=== PATIENT | male | born 1995 | race Caucasian/White ===

== ENCOUNTER 2016-10-23 18:18 | Emergency (ER) | payer OTHER ==
[2016-10-23] MEDS ORDERED: Ibuprofen TAB* 600 MG PO ONE (18:54)
--- NOTE | 2016-10-23 18:57 | UC ---
Lower Extremity/Ankle HPI - HPI Summary HPI Summary: 21 yo male arrived here soon after left ankle inversion injury unable to bear wt - History of Current Complaint Chief Complaint: UCLowerExtremity Stated Complaint: FOOT INJURY Time Seen by Provider: 10/23/16 18:50 Hx Obtained From: Patient Onset/Duration: Sudden Onset Severity Initially: Moderate Severity Currently: Moderate Pain Intensity: 6 Pain Scale Used: 0-10 Numeric Aggravating Factor(s): Standing, Ambulation Alleviating Factor(s): Rest, Elevation Able to Bear Weight: No - Allergies/Home Medications Allergies/Adverse Reactions: Allergies Allergy/AdvReac Type Severity Reaction Status Date / Time No Known Allergies Allergy Verified 10/23/16 18:34 Home Medications: Home Medications OLANzapine TAB* [ZyPREXA TAB*] 10 mg PO DAILY 10/23/16 [History Confirmed ] PMH/Surg Hx/FS Hx/Imm Hx Previously Healthy: Yes - Surgical History Surgical History: None - Family History Known Family History: Positive: Hypertension - Social History Alcohol Use: Occasionally Substance Use Type: None Smoking Status (MU): Never Smoked Tobacco Review of Systems Constitutional: Negative Skin: Negative Eyes: Negative ENT: Negative Respiratory: Negative Cardiovascular: Negative Gastrointestinal: Negative Genitourinary: Negative Motor: Negative Neurovascular: Negative Musculoskeletal: Arthralgia Neurological: Negative Psychological: Negative All Other Systems Reviewed And Are Negative: Yes Physical Exam Triage Information Reviewed: Yes Appearance: Well-Appearing, No Pain Distress, Well-Nourished Vital Signs: Initial Vital Signs Temp 99 F 10/23/16 18:31 Pulse 116 10/23/16 18:31 Resp 20 10/23/16 18:31 BP 122/70 10/23/16 18:31 Vital Signs Reviewed: Yes Eyes: Positive: Conjunctiva Clear ENT: Positive: Hearing grossly normal. Negative: Nasal drainage, Trismus, Muffled/hoarse voice Neck: Positive: Supple Respiratory: Positive: Lungs clear, Normal breath sounds, No respiratory distress Cardiovascular: Positive: RRR, No Murmur Musculoskeletal: Positive: Edema @ - LM and MM Psychological: Positive: Normal Response To Family, Age Appropriate Behavior Skin Exam: Normal Lower Extremity Course/Dx - Differential Dx/Diagnosis Provider Diagnoses: left ankle sprain Discharge - Discharge Plan Condition: Stable Disposition: HOME Prescriptions: Ibuprofen TAB* [Motrin TAB*] 600 mg PO QID PRN #40 tab PRN Reason: Pain Patient Education Materials: Ankle Sprain (ED) Referrals: Hernan Arthur [Medical Doctor] - If Needed (call Tuesday and make an appt) Additional Instructions: rest elevate ice kenneth wrap- remove at bedtime CAM boot crutches you can wt bear as tolerated you will probably have some significant bruising of the foot
--- NOTE | 2016-10-23 19:18 | RAD ---
Indication: Lateral pain following injury playing basketball. Comparison: None. Technique: AP, mortise, and lateral views LEFT ankle. Report: Significant lateral soft tissue swelling and evidence for a talocrural joint effusion with distention of the posterior joint recess. No fracture, osteochondral lesion, or malalignment evident. Small os trigonum noted. IMPRESSION: Consider lateral supporting ligament injury.
[2016-10-23 19:22] VITALS: BP 96/49
== END 2016-10-23 19:43 | disposition home or self-care (01) ==
LOC: UCEAST 18:18
DX: S93.402A Sprain of unspecified ligament of left ankle, initial encounter (principal); X50.1XXA Overexertion from prolonged static or awkward postures, initial encounter; Y93.9 Activity, unspecified; Y92.9 Unspecified place or not applicable
CPT/HCPCS: 99203; A9270-GY; G0463

== ENCOUNTER 2017-05-25 23:19 | Inpatient (IN) | payer OTHER ==
[2017-05-26 00:09] LABS: Hematocrit 45 % (42-52); Hemoglobin 15.2 g/dl (14.0-18.0); Mean Corpuscular HGB Conc 34 g/dl (31-36); Mean Corpuscular Hemoglobin 30 pg (27-31); Mean Corpuscular Volume 88 fL (80-94); Mean Platelet Volume 8 um3 (7.4-10.4); Red Blood Count 5.06 10^6/ul (4.0-5.4); Red Cell Distribution Width 14 % (10.5-15); White Blood Count 8.8 10^3/ul (3.5-10.8)
[2017-05-26 00:24] LABS: Acetaminophen < 15 mcg/mL; Alcohol < 10 mg/dL (<10); Salicylate < 2.50 mg/dL (<30)
[2017-05-26 00:25] LABS: ALT 111 U/L (7-52); AST 67 U/L (13-39); Albumin 4.4 g/dL (3.2-5.2); Alkaline Phosphatase 94 U/L (34-104); Anion Gap 8 mmol/L (2-11); BUN/Creatinine Ratio 12.5 (8-20); Blood Urea Nitrogen 12 mg/dL (6-24); CO2 Carbon Dioxide 23 mmol/L (22-32); Calcium 9.1 mg/dL (8.6-10.3); Chloride 105 mmol/L (101-111); EGFR African American 127.2 (>60); EGFR Non-African American 98.9 (>60); Globulin 3.1 g/dL (2-4); Glucose 97 mg/dL (70-100); Potassium 3.5 mmol/L (3.5-5.0); Sodium 136 mmol/L (133-145); Total Protein 7.5 g/dL (6.4-8.9)
[2017-05-26 00:34] LABS: TSH (Thyroid Stimulating Horm) 1.62 mcIU/mL (0.34-5.60)
--- NOTE | 2017-05-26 04:20 | ED ---
Micaela Boothe Rebecca, scribed for Juan Lemus on 05/26/17 at 0040 . Psychiatric Complaint - HPI Summary HPI Summary: Pt is a 22 y/o M who presents to ED c/o fatigue s/p Zyprexa OD. Tuesday night at midnight (2 days) the pt took 15 Zyprexa. Pt reports he only remembers potrions of the night, but when asked if he was experiencing SIs at the time, he states "I guess." Pt did not wake up until today when he now c/o fatigue. Denies currently experiencing SIs. PMHx Bipolar disorder for hwich he had the Zyprexa as an emergency medication after a change in medication. - History Of Current Complaint Chief Complaint: EDMentalHealth Time Seen by Provider: 05/26/17 00:14 Hx Obtained From: Patient Onset/Duration: Resolved Aggravating Factor(s): Nothing Alleviating Factor(s): Nothing Related History: Positive For: Prior Psychiatric Issues - Bipolar Disorder Has Suicidal: Denies: Thoughts - Negative currently, believes he had them the other night Ingestion History: Type/Name Of Drug - Zyprexa, Amount Ingested - 15 tabs, Approximate Time Of Ingestion - 2 days ago - Allergies/Home Medications Allergies/Adverse Reactions: Allergies Allergy/AdvReac Type Severity Reaction Status Date / Time No Known Allergies Allergy Verified 10/23/16 18:34 PMH/Surg Hx/FS Hx/Imm Hx Cardiovascular History: Denies: Hx Coronary Artery Disease Psychiatric History: Reports: Hx Bipolar Disorder Infectious Disease History: No Infectious Disease History: Denies: Traveled Outside the [place] in Last 30 Days - Family History Known Family History: Positive: Hypertension - Social History Alcohol Use: Occasionally Substance Use Type: Reports: None Smoking Status (MU): Never Smoked Tobacco Review of Systems Positive: Fatigue Positive: Other - Denies SIs now - believes he had them the other night All Other Systems Reviewed And Are Negative: Yes Physical Exam - Summary Physical Exam Summary: Appearance: Well appearing, no pain distress Skin: warm, dry, reflects adequate perfusion Head/face: normal Eyes: EOMI, [place] ENT: normal Neck: supple, nontender Respiratory: CTA, breath sounds present Cardiovascular: RRR, pulses symmetrical Abdomen: nontender, soft Bowel: present Musculoskeletal: normal, strength/ROM intact Neuro: normal, sensory motor intact, A&Ox3 Psychiatric: Depressed affect Triage Information Reviewed: Yes Vital Signs On Initial Exam: Initial Vitals Temp Pulse Resp BP Pulse Ox 98.6 F 109 18 159/96 97 05/25/17 23:23 05/25/17 23:23 05/25/17 23:23 05/25/17 23:23 05/25/17 23:23 Vital Signs Reviewed: Yes Diagnostics - Vital Signs Vital Signs Temp Pulse Resp BP Pulse Ox 05/25/17 23:23 98.6 F 109 18 159/96 97 - Laboratory Lab Results: Lab Results 05/26/17 Range/Units 00:00 WBC 8.8 (3.5-10.8) 10^3/ul RBC 5.06 (4.0-5.4) 10^6/ul Hgb 15.2 (14.0-18.0) g/dl Hct 45 (42-52) % MCV 88 (80-94) fL MCH 30 (27-31) pg MCHC 34 (31-36) g/dl RDW 14 (10.5-15) % Plt Count 225 (150-450) 10^3/ul MPV 8 (7.4-10.4) um3 Neut % (Auto) 67.8 (38-83) % Lymph % (Auto) 22.7 L (25-47) % Coffey % (Auto) 7.4 (1-9) % Eos % (Auto) 1.4 (0-6) % Baso % (Auto) 0.7 (0-2) % Absolute Neuts (auto) 6.0 (1.5-7.7) 10^3/ul Absolute Lymphs (auto) 2.0 (1.0-4.8) 10^3/ul Absolute Monos (auto) 0.7 (0-0.8) 10^3/ul Absolute Eos (auto) 0.1 (0-0.6) 10^3/ul Absolute Basos (auto) 0.1 (0-0.2) 10^3/ul Absolute Nucleated RBC 0 10^3/ul Nucleated RBC % 0 Result Diagrams: 05/26/17 00:00 05/26/17 00:00 Lab Statement: Any lab studies that have been ordered have been reviewed, and results considered in the medical decision making process. - EKG 2357 Cardiac Rate: NL - 97 bpm EKG Rhythm: Sinus Rhythm EKG Interpretation: No acute changes Course/Dx - Course Assessment/Plan: Pt is a 22 y/o M who presents to ED c/o fatigue s/p Zyprexa OD. Tuesday night at midnight (2 days) the pt took 15 Zyprexa. Pt reports he only remembers potrions of the night, but when asked if he was experiencing SIs at the time, he states "I guess." Pt did not wake up until today when he now c/ o fatigue. Denies currently experiencing SIs. PMHx Bipolar disorder for hwich he had the Zyprexa as an emergency medication after a change in medication. Blood work was done. EKGis sinus rhtyhm with no acute changes. Medically clear for MHE at 0110. Upon MHE, it has been determined that the pt will be admitted with Dx of depression, SIs and bipolar. He understands and agrees. Elevated BP noted. - Differential Dx/Clinical Impression Provider Diagnosis: Depression, Suicidal ideations, Bipolar disorder Discharge - Discharge Plan Condition: Stable Disposition: ADMITTED TO [facility] The documentation as recorded by the Micaela goodwin Rebecca accurately reflects the service I personally performed and the decisions made by , Juan Lemus.
[2017-05-26 04:47] LABS: Albumin 4.6 g/dL (3.2-5.2); Direct Bilirubin 0.2 mg/dL (0.03-0.18); Globulin 3.2 g/dL (2-4); Indirect Bilirubin 0.6 mg/dL (0.3-1.0); Total Bilirubin 0.8 mg/dL (0.2-1.0); Total Protein 7.8 g/dL (6.4-8.9)
[2017-05-26] MEDS ORDERED: Acetaminophen TAB* 325 MG PO PRN (05:59)
[2017-05-26] MEDS ORDERED: Al Hydrox/Mg Hydrox/Simet LIQ* 30 ML UDC PO PRN (05:59)
[2017-05-26] MEDS: Vitamin THERAPEUTIC TAB PO SCH (10:29)
[2017-05-26 11:35] LABS: Urine Bilirubin Negative (Negative); Urine Glucose Negative (Negative); Urine Nitrite Negative (Negative)
[2017-05-26 11:49] LABS: Benzodiazepine Urine Screen None Detected (None Detect)
[2017-05-26] MEDS: Lithium Carbonate TAB* 300 MG PO SCH ×2 (14:35→21:06)
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
[2017-05-26] MEDS ORDERED: CMC:Lurasidone (NF) 40 MG TAB PO SCH (17:00)
[2017-05-27] MEDS: Vitamin THERAPEUTIC TAB PO SCH (08:43)
[2017-05-27] MEDS: Lithium Carbonate TAB* 300 MG PO SCH ×2 (08:43→20:18)
[2017-05-27] MEDS: BuPROPion XL* 150 MG TAB.XL PO SCH (14:11)
--- NOTE | 2017-05-27 15:18 | PN ---
Subjective - Subjective Service Type: 85666 Hosp care 25 min moderate complexity Subjective: Patient is dysphoric, pleasant upon approach. He reports feeling "tired." Patient reports history of medication non-compliance and that he typically misses doses approx a few times per week. He denies barriers other than forgetfulness. He denies side effects from medications. He is receptive to suggestions for improved adherence, including daily dosing of medications and monthly injectable. Patient reports his current psychiatrist is out of network for insurance and therefore tries to prescribe medications that are inexpensive or available via samples. Collaboration with patient's psychiatrist denotes agreement with pursuing injectable medication. Social work contacted insurance company to clarify benefits. Objective - Appearance Appearance: Well Developed/Nourished Dysmorphic Features: Yes Hygiene: Normal Grooming: Fairly Well Kept - Behavior Psychomotor Activities: Normal Exhibits Abnormal Movement: No - Attitude and Relatedness Attitude and Relatedness: Cooperative Eye Contact: Fair - Speech Quality: Unpressured Latencies: Normal Quantity: Appropriate - Mood Patient's Decription of Mood: "tired" - Affect Observed Affect: Depressed Affect Consistent with: Dysphoria - Thought Process Patient's Thought Process: Coherent, Goal Directed Thought Content: No Passive Wish, No Suicidal Planning, No Homicidal Ideation, No Paranoid Ideation - Sensorium Experiencing Hallucinations: No, Sensorium is Clear Type of Hallucinations: Visual: No, Auditory: No, Command: No - Level of Consciousness Level of Consciousness: Alert Orientation: Yes Intact, Yes Orientated to Time, Yes Orientated to Place, Yes Orientated to Person - Impulse Control Impulse Control: Tenuous - Insight and Judgement Insight and Judgement: Fair - Group Participation Particating in Group Activities: Yes Group Participation Comments: partially - Medication Management Medication Management Adherence: Yes Assessment - Assessment Merits Inpatient Hospitalization: For Immediate Safety, For Stabilization, To Initiate Treatment, For Discharge Planning Inpatient DSM-IV Dx: I: bipolar I d/o, most recent episode depressed; alcohol use d/o, cannabis use d/o. II: deferred. III: increased liver enzymes, obesity. IV: stressors r/t social isolation, academic pressures. V: 50 Clinical Impression: Jony is a 22yo student with a history of bipolar d/o. He attempted overdose via a previous prescription of zyprexa. He merits hospitalization for immediate safety and stabilization. He is agreeable to consideration of injectable medication due to medication non-compliance. Plan - Plan Treatment Plan: Name: JONY PANCHAL Birthdate: 1995 [id number] Add wellbutrin XL 150mg daily, DC Latuda and add and aripiprazole 20mg daily. Will consider abilify maintenna injection if patient tolerates oral trial. Obtain lithium level, CMP, hbga1c and lipid panel in am. Decrease observation to q30min and allow for staff pass. Patient may use computer for academic needs. Continued Medication Management: Different Medication Medications: Current Medications Acetaminophen (Tylenol Tab*) 650 mg PO Q4H PRN PRN Reason: PAIN or TEMP > 101 F Al Hydrox/Mg Hydrox/Simethicone (Maalox Plus*) 30 ml PO Q4H PRN PRN Reason: INDIGESTION Aripiprazole (Abilify Tab*) 20 mg PO DAILY REED Bupropion HCl (Wellbutrin Xl *) 150 mg PO DAILY REED PRN Reason: Protocol Last Admin: 05/27/17 14:11 Dose: 150 mg [place] Carbonate ([place] Carbonate Tab*) 300 mg PO BID REED Last Admin: 05/27/17 08:43 Dose: 300 mg Multivitamins (Theragran Tab*) 1 tab PO DAILY REED Last Admin: 05/27/17 08:43 Dose: 1 tab - Discharge Plan Discharge Plan: Outpatient Follow Up Outpatient Program: Private Clinician(s) - Michelle Colindres
[2017-05-27] MEDS: ARIPiprazole TAB* 20 MG PO SCH (15:45)
[2017-05-28 08:31] LABS: Albumin 4.9 g/dL (3.2-5.2); BUN/Creatinine Ratio 10.7 (8-20); Calcium 9.7 mg/dL (8.6-10.3); EGFR African American 106.4 (>60); EGFR Non-African American 82.8 (>60); HDL Cholesterol 33.7 mg/dL; Total Bilirubin 0.8 mg/dL (0.2-1.0); Total Protein 7.9 g/dL (6.4-8.9)
[2017-05-28] MEDS: Vitamin THERAPEUTIC TAB PO SCH (08:36)
[2017-05-28] MEDS: ARIPiprazole TAB* 20 MG PO SCH (08:36)
[2017-05-28] MEDS: BuPROPion XL* 150 MG TAB.XL PO SCH (08:36)
[2017-05-28] MEDS: Lithium Carbonate TAB* 300 MG PO SCH ×2 (08:36→20:23)
[2017-05-28 08:58] LABS: Lithium 0.2 mmol/L (0.6-1.2)
[2017-05-29] MEDS: ARIPiprazole TAB* 20 MG PO SCH (08:33)
[2017-05-29] MEDS: Vitamin THERAPEUTIC TAB PO SCH (08:33)
[2017-05-29] MEDS: BuPROPion XL* 150 MG TAB.XL PO SCH (08:33)
[2017-05-29] MEDS: Lithium Carbonate TAB* 300 MG PO SCH ×2 (08:33→20:11)
--- NOTE | 2017-05-29 18:21 | PN ---
Subjective - Subjective Service Type: 99861 Hosp care 15 min low complexity Subjective: Jony appeared to be in good mood and reports that his current meds are working the best without any side effects. Denies hallucinations, paranoia or mood problems. Wants to know his discharge date and I defered that to his development planner. Objective - Appearance Appearance: Obese Dysmorphic Features: No Hygiene: Normal Grooming: Well Kept - Behavior Psychomotor Activities: Normal Exhibits Abnormal Movement: No - Attitude and Relatedness Attitude and Relatedness: Cooperative Eye Contact: Good - Speech Quality: Unpressured Latencies: Normal Quantity: Appropriate - Mood Patient's Decription of Mood: "Fine" - Affect Observed Affect: Non-labile Affect Consistent with: Euthymia - Thought Process Patient's Thought Process: Coherent, Goal Directed Thought Content: No Passive Wish, No Suicidal Planning, No Homicidal Ideation, No Paranoid Ideation - Sensorium Experiencing Hallucinations: No, Sensorium is Clear Type of Hallucinations: Visual: No, Auditory: No, Command: No - Level of Consciousness Level of Consciousness: Alert Orientation: Yes Intact, Yes Orientated to Time, Yes Orientated to Place, Yes Orientated to Person - Impulse Control Impulse Control: Intact - Insight and Judgement Insight and Judgement: Good - Group Participation Particating in Group Activities: Yes - Medication Management Medication Management Adherence: Yes Assessment - Assessment Merits Inpatient Hospitalization: Consolidate Improvements, For Discharge Planning Inpatient DSM-IV Dx: I: bipolar I d/o, most recent episode depressed; alcohol use d/o, cannabis use d/o. II: deferred. III: increased liver enzymes, obesity. IV: stressors r/t social isolation, academic pressures. V: 50 Clinical Impression: Appears to be doing well on current meds. Plan - Plan Treatment Plan: Name: JONY PANCHAL Birthdate: 1995 [id number] Continued Medication Management: Continue Outpt Medication Medications: Current Medications Acetaminophen (Tylenol Tab*) 650 mg PO Q4H PRN PRN Reason: PAIN or TEMP > 101 F Al Hydrox/Mg Hydrox/Simethicone (Maalox Plus*) 30 ml PO Q4H PRN PRN Reason: INDIGESTION Aripiprazole (Abilify Tab*) 20 mg PO DAILY REED Last Admin: 05/29/17 08:33 Dose: 20 mg Bupropion HCl (Wellbutrin Xl *) 150 mg PO DAILY [facility] PRN Reason: Protocol Last Admin: 05/29/17 08:33 Dose: 150 mg [place] Carbonate ([place] Carbonate Tab*) 300 mg PO BID REED Last Admin: 05/29/17 08:33 Dose: 300 mg Multivitamins (Theragran Tab*) 1 tab PO DAILY [facility] Last Admin: 05/29/17 08:33 Dose: 1 tab - Discharge Plan Discharge Plan: Outpatient Follow Up Outpatient Program: JUAN CARLOS
[2017-05-30] MEDS: BuPROPion XL* 150 MG TAB.XL PO SCH (08:11)
[2017-05-30] MEDS: ARIPiprazole TAB* 20 MG PO SCH (08:11)
[2017-05-30] MEDS: Vitamin THERAPEUTIC TAB PO SCH (08:11)
[2017-05-30] MEDS: Lithium Carbonate TAB* 300 MG PO SCH (08:11)
[2017-05-30 08:20] VITALS: BP 131/63
[2017-05-30] MEDS ORDERED: Aripiprazole Maintena (NF) 300 MG SYRINGE IM SCH (11:00)
--- NOTE | 2017-05-30 15:50 | DS ---
CC: KELLY Chung; Dr. Suresh; Bharati Rashid, JODIE, [facility]* DATE OF ADMISSION: 05/26/2017. DATE OF DISCHARGE: 05/30/2017. SUPERVISING PSYCHIATRIST: Dr. Jim Zaragoza* (dictated by KENAN Rodriguez) . DISCHARGE DIAGNOSES: Bipolar disorder, most recent episode depressed; alcohol use disorder; cannabis use disorder. CONDITION AT THE TIME OF DISCHARGE: Improved. Max reports readiness for discharge. He states that his mood is "good." He denies suicidal ideation. He denies passive wish. He reports that last week he was overwhelmed with school, work and life decisions in regards to education and career. He is receptive to suggestions from staff in regards to medication compliance and decrease in alcohol use. He states that he "wants to quit" and asks about resources on campus and elsewhere for counseling and substance use treatment. He is agreeable to first injection of Abilify Maintena today in order to improve medication adherence and stability. He reports agreement to follow-up with outpatient providers this week as well. The patient reports receiving benefit of admission, attending groups, and meeting with other patients who are the same age and also college students. He reports not feeling as alone in regards to being hospitalized and having bipolar disorder. MENTAL STATUS EXAM: The patient is euthymic, brightens upon approach. He is well- groomed, dressed in his own clothing. He is a tall male with brown hair. He is pleasant and cooperative, and answers questions fully. His eye contact is good. His speech is soft and articulate. Thought process is logical and goal -directed. He is forward thinking. Thought content is negative for delusions, active suicidal ideations or obsessions. He denies A/V hallucinations. His insight is good. His judgment is good. Memory functions are intact in all spheres. Fund of knowledge is excellent. DISCHARGE INSTRUCTIONS GIVEN TO THE PATIENT: A. Medications: The following were electronically prescribed to [facility] in [place]: He will continue Aripiprazole 20 mg oral at bedtime daily for 14 days and then stop; he will continue Aripiprazole Maintena injection 400 mg q.28 days; Wellbutrin XL 300 mg p.o. q.a.m.; [place] ER 600 mg at bedtime. The above oral medications were electronically prescribed for a two week supply. B. Diet: Regular. C. Ambulance: As tolerated. Tobacco cessation not applicable. There are no pending labs or diagnostic studies at the time of discharge. The patient was given a copy of his chemistry data obtained in the hospital including liver enzymes which are improving. Hemoglobin A1c and lipid panel were drawn due to second generation antipsychotic therapy. D. Follow-up care: The patient will see Bharati Rashid, [facility] Security System Administrator tomorrow. He will see his psychiatrist, Dr. Suresh on Tuesday , the , at 11:00 a.m. He will need a [place] level drawn in one week from today. He has an appointment with his therapist, Michelle Rouse, appointment to be set by senior production planner. He is encouraged to follow-up with primary care through [facility] in regards to liver enzymes and other general medical complaints as needed. HOSPITAL COURSE: A. Reason for admission: The patient presented to the emergency department with his roommates after taking an overdose of Zyprexa two days ago. He fell asleep and woke up disoriented to time and day. He told his roommates that he had taken approximately 15 Zyprexa tabs from a previous prescription. He was agreeable to being evaluated in the emergency department. B. Psychiatric treatment rendered: The patient was admitted to the Adult Behavioral Services Unit on status. Code status was full. Safety checks every 15 minutes. The patient was encouraged to participate in supportive milieu and individual and group therapy. Initially re-instated T[place] and Latuda as those were his current outpatient prescriptions. The patient reported difficulty with remembering to take medications on an outpatient basis. He was agreeable to once daily dosing of medications and to consider a long-acting injectable. Discharge planners identified insurance benefits for him through [employer]. This included mail order prescriptions. [employer] collaborated with outpatient psychiatrist, Dr. Suresh, and he is agreeable with continuing long-acting injectable. The patient tolerated an oral trial of Aripiprazole and was given his first dose of Abilify Maintena 400 mg today. Other than tenderness at the site, no other adverse effects were noted. The patient was decreased to 30 minute checks for observation, allowed to go on staff pass. He was allowed the use of a computer for academic purposes. He was present in programming, euthymic, interactive with select peers and staff. He slept well. He denied depression or anxiety. Wellbutrin was reinstated at 150 mg. he denied hypomania or anxiety. He denied suicidal ideation, HI or , and continued to report readiness for discharge. The patient was safe on all checks. This parts data writer collaborated with his mother and notified her of improvement in patient's presentation and his insight in regards to alcohol use and medication noncompliance. She was notified of treatment planning and discharge planning. Discussed separately with both patient and mother safety planning to include disposing of previous and unused medications. The patient will also be coordinating with [facility] Crisis Management. The patient reports desire to take taxi back to his apartment. He will be given discharge instructions by nursing staff. Discharge instructions will also be emailed to his mother to assist in follow up. The patient is an intelligent and kind, respectful young man. We wish him well. He is encouraged to return to the ED should symptoms worsen or if he has any side effects from current medications. KENAN RODRIGUEZ [id number]/CPS #: [id number] LEONORA
== END 2017-05-30 16:00 | disposition home or self-care (01) | DRG 753 ==
LOC: ED 23:19 → BSU 05-26 02:52
PROVIDERS: ADMIT Psychiatry & Neurology Psychiatry; ATTEND Psychiatry & Neurology Psychiatry
DX: F31.30 Bipolar disorder, current episode depressed, mild or moderate severity, unspecified (principal); Z91.14 Patient's other noncompliance with medication regimen; E66.9 Obesity, unspecified; F12.90 Cannabis use, unspecified, uncomplicated; T43.592A Poisoning by other antipsychotics and neuroleptics, intentional self-harm, initial encounter; R79.89 Other specified abnormal findings of blood chemistry; F41.9 Anxiety disorder, unspecified; R53.83 Other fatigue; Z68.38 Body mass index [BMI] 38.0-38.9, adult; Z87.820 Personal history of traumatic brain injury; Z72.89 Other problems related to lifestyle; Z81.8 Family history of other mental and behavioral disorders; Z81.1 Family history of alcohol abuse and dependence; Z82.49 Family history of ischemic heart disease and other diseases of the circulatory system
CPT/HCPCS: 36415; 80053; 80061; 80076; 80178; 80307; 80320; 80329; 81003; 83036; 84443; 85025; 93005; A9270-GY; G0480

== ENCOUNTER 2018-02-14 10:30 | Emergency (ER) | payer OTHER ==
[2018-02-14 10:59] VITALS: BP 143/87
[2018-02-14] MEDS ORDERED: Ketorolac INJ* 30 MG/ML 1 ML VIAL IM ONE (11:18)
--- NOTE | 2018-02-14 11:25 | ED ---
Back Pain - HPI Summary HPI Summary: 22 presents with back pain for the past couple days. He states he does not have a history of back pain. He states that pain is in his lower back. Denies any loss of bladder or bowel or saddle anesthesia. Denies any fevers. Denies any history of IV drug use. No weakness. No pain into his legs. No numbness or tingling. is able to ambulate. States pain is greatest when trying to lay on his back. Has been taking Tylenol without relief. No injury. - History of Current Complaint Chief Complaint: UCBackPain Stated Complaint: BACK PAIN Time Seen by Provider: 02/14/18 11:12 Pain Intensity: 3 - Allergies/Home Medications Allergies/Adverse Reactions: Allergies Allergy/AdvReac Type Severity Reaction Status Date / Time No Known Allergies Allergy Verified 02/14/18 10:56 PMH/Surg Hx/FS Hx/Imm Hx Endocrine/Hematology History: Denies: Hx Anticoagulant Therapy Cardiovascular History: Denies: Hx Coronary Artery Disease Sensory History: Denies: Hx Contacts or Glasses, Hx Hearing Aid Opthamlomology History: Denies: Hx Contacts or Glasses Psychiatric History: Reports: Hx Inpatient Treatment, Hx Community Mental Health Tx, Hx Bipolar Disorder Denies: Hx Eating Disorder Infectious Disease History: No Infectious Disease History: Denies: Traveled Outside the [place] in Last 30 Days - Family History Known Family History: Positive: Hypertension - Social History Alcohol Use: None Substance Use Type: Reports: None Smoking Status (MU): Never Smoked Tobacco Have You Smoked in the Last Year: No Review of Systems Negative: Fever Negative: Chest Pain Negative: Shortness Of Breath Positive: Myalgia - back pain All Other Systems Reviewed And Are Negative: Yes Physical Exam Triage Information Reviewed: Yes Vital Signs On Initial Exam: Initial Vitals Temp Pulse Resp BP Pulse Ox 96.6 F 96 18 143/87 100 02/14/18 10:56 02/14/18 10:56 02/14/18 10:56 02/14/18 10:56 02/14/18 10:56 Vital Signs Reviewed: Yes Appearance: Positive: Well-Appearing Skin: Positive: Warm, Dry Head/Face: Positive: Normal Head/Face Inspection Eyes: Positive: Normal, Conjunctiva Clear ENT: Positive: Pharynx normal Respiratory/Lung Sounds: Positive: Clear to Auscultation, Breath Sounds Present Cardiovascular: Positive: Normal, RRR Musculoskeletal: Positive: Strength/ROM Intact - back, Other - tenderness lower back, neg SLR, good strength lower leg, good pulses, gait normal, sensation grossly intact Neurological: Positive: Normal, Reflexes Intact - patella Psychiatric: Positive: Normal Diagnostics - Vital Signs Vital Signs Temp Pulse Resp BP Pulse Ox 02/14/18 10:56 96.6 F 96 18 143/87 100 - Laboratory Lab Statement: Any lab studies that have been ordered have been reviewed, and results considered in the medical decision making process. Back Pain Course/Dx - Course Course Of Treatment: 22 presents with back pain for the past couple days. He states he does not have a history of back pain. He states that pain is in his lower back. Denies any loss of bladder or bowel or saddle anesthesia. Denies any fevers. Denies any history of IV drug use. No weakness. No pain into his legs. No numbness or tingling. is able to ambulate. States pain is greatest when trying to lay on his back. Has been taking Tylenol without relief. No injury. on exam tenderness lower back. good strenght lower extremities. neurovascular intact. gave toradol and feeling better. will prescribe medrol. told to follow up with primary as blood pressure is elevated at this visit. patient understand and agrees with plan. - Diagnoses Differential Diagnosis/HQI/PQRI: Positive: Herniated Disc, Strain, Sprain Provider Diagnoses: Back pain, Elevated blood pressure reading Discharge - Sign-Out/Discharge Documenting (check all that apply): Discharge/Admit/Transfer - Discharge Plan Condition: Good Disposition: HOME Prescriptions: methylPREDNISolone [Medrol Dosepak 4 MG*] 4 mg PO .SEE JESSI INSTRUCTION #1 packet Patient Education Materials: Back Pain (ED) Referrals: [facility] [Primary Care Provider] - Additional Instructions: Follow directions on package for Medrol pack Use Tylenol for pain every 6 hours, if not enough can add on ibuprofen up to twice a day ice/heat area, move as much as possible Follow up with primary within 5 days Return to ED if develop any new or worsening symptoms - Billing Disposition and Condition Condition: GOOD Disposition: HOME
== END 2018-02-14 11:44 | disposition home or self-care (01) ==
LOC: UCEAST 10:30
DX: M54.9 Dorsalgia, unspecified (principal); R03.0 Elevated blood-pressure reading, without diagnosis of hypertension
CPT/HCPCS: 96372; 99212; G0463; J1885